=== PATIENT | female | born 1945 | race Caucasian/White ===

== ENCOUNTER → 2016-09-15 | Outpatient (CLI) | payer MEDICARE, OTHER ==
[~2016-09-15] MED LIST: ASPIRIN EC81 MG PO; BIOTIN300 MCG PO; BREO ELLIPTA 11 EACH INH; CALCIUM + D SO1 EACH PO; CATAPRES 0.1MG0.1 MG PO; CENTRUM COMPLE1 EACH PO; DILTIAZEM 24HR180 M1 PO; FLONASE 0.05% N16 GM; FUROSEMIDE40 MG PO; GLUCOPHAGE850 MG PO; LIPITOR TAB 2020 MG PO; LISINOPRIL5 MG PO; METFORMIN HCL1000 MG PO; NITROSTAT0.4 MG SL; OMEPRAZOLE40 MG PO; POTASSIUM CHLO10 MEQ PO; PRADAXA150 MG PO; PROAIR HFA8.5 GM INH; PROMETHAZINE HC25 M1 PO; RANEXA1000 MG PO; RANEXA500 MG PO; ROPINIROLE HCL0.5 MG PO; SINGULAIR10 MG PO; SOTALOL AF80 MG PO; SOTALOL120 MG PO; TESSALON PERLE100 MG PO; TRAMADOL HCL50 MG PO; VITAMIN B12-FO1 EACH PO; VITAMIN D250000 UNIT PO; VITAMIN D3 COM1 EACH PO; WELCHOL625 MG PO; ZETIA 10 MG TAB10 MG PO; ZYRTEC10 M3 PO
== END ==
LOC: HEART 5 14:56
DX: R00.2 Palpitations (principal); I48.91 Unspecified atrial fibrillation; I10 Essential (primary) hypertension

== ENCOUNTER → 2016-09-19 | Outpatient (CLI) | payer MEDICARE, OTHER | LOC: HEART 5 11:03 | DX: J45.991 Cough variant asthma (principal); I25.10 Atherosclerotic heart disease of native coronary artery without angina pectoris; J98.11 Atelectasis | CPT/HCPCS: 71020-FX ==

== ENCOUNTER → 2016-10-27 | Outpatient (CLI) | payer MEDICARE, OTHER | LOC: HEART 5 10-26 11:00 | DX: I25.10 Atherosclerotic heart disease of native coronary artery without angina pectoris (principal); I48.91 Unspecified atrial fibrillation | CPT/HCPCS: 93306 ==

== ENCOUNTER 2016-11-05 11:41 | Emergency (ER) | payer MEDICARE, OTHER ==
[~2016-11-05 11:41] MED LIST changes: -BIOTIN300 MCG PO; -BREO ELLIPTA 11 EACH INH; -CATAPRES 0.1MG0.1 MG PO; -GLUCOPHAGE850 MG PO; -LISINOPRIL5 MG PO; -PROAIR HFA8.5 GM INH; -RANEXA1000 MG PO; -SOTALOL AF80 MG PO; -VITAMIN D250000 UNIT PO
[2016-11-05 12:55] LABS: HEMOGLOBIN 11.6 gm/dl (12.3-15.3); RED BLOOD COUNT 4.15 M/UL (4.00-5.10); WHITE BLOOD COUNT 10.3 K/UL (4.5-11.0)
[2016-11-05 13:14] LABS: BUN/CREATININE RATIO 17 (0-10)
[2016-12-24] MEDS ORDERED: VITAMIN B12-FO1 EACH PO (05:23)
[2016-12-24] MEDS ORDERED: VITAMIN D250000 UNIT PO (05:23)
[2016-12-24] MEDS ORDERED: BIOTIN300 MCG PO (05:23)
[2016-12-24] MEDS ORDERED: BREO ELLIPTA 11 EACH INH (05:24)
[2016-12-24] MEDS ORDERED: GLUCOPHAGE850 MG PO (05:24)
[2016-12-24] MEDS ORDERED: SOTALOL AF80 MG PO (05:25)
[2016-12-24] MEDS ORDERED: CATAPRES 0.1MG0.1 MG PO (05:25)
[2016-12-24] MEDS ORDERED: PROAIR HFA8.5 GM INH (05:25)
[2016-12-24] MEDS ORDERED: RANEXA1000 MG PO (05:25)
[2016-12-24] MEDS ORDERED: LISINOPRIL5 MG PO (14:18)
== END 2016-11-05 14:54 | disposition home or self-care (01) ==
LOC: ER1 11:41
PROVIDERS: Emergency Medicine
DX: R42 Dizziness and giddiness (principal); R53.1 Weakness; R11.2 Nausea with vomiting, unspecified; R51 Headache; I48.91 Unspecified atrial fibrillation; I10 Essential (primary) hypertension; E11.9 Type 2 diabetes mellitus without complications; Z95.1 Presence of aortocoronary bypass graft
CPT/HCPCS: 36415; 70450; 71010; 80053; 82550; 82553; 83874; 84484; 85025; 93005; 99284; Q0162

== ENCOUNTER → 2017-02-14 | Day surgery (SDC) | payer MEDICARE, OTHER ==
[~2017-02-14] VITALS: Ht 149.9 cm; Wt 70.3 kg
[~2017-02-14] MED LIST changes: +BIOTIN300 MCG PO; +BREO ELLIPTA 11 EACH INH; +CATAPRES 0.1MG0.1 MG PO; +GLUCOPHAGE850 MG PO; +LISINOPRIL5 MG PO; +PROAIR HFA8.5 GM INH; +RANEXA1000 MG PO; +SOTALOL AF80 MG PO; +VITAMIN D250000 UNIT PO
== END | disposition home or self-care (01) ==
LOC: OR 07:26
PROVIDERS: Internal Medicine Gastroenterology
PROC: 0DB78ZX Excision of Stomach, Pylorus, Via Natural or Artificial Opening Endoscopic, Diagnostic (ICD-10-PCS; principal; 2017-02-14 11:45)
DX: E11.43 Type 2 diabetes mellitus with diabetic autonomic (poly)neuropathy (principal); K31.84 Gastroparesis; K29.70 Gastritis, unspecified, without bleeding; I10 Essential (primary) hypertension; G47.30 Sleep apnea, unspecified; Z80.0 Family history of malignant neoplasm of digestive organs; Z88.6 Allergy status to analgesic agent; Z79.82 Long term (current) use of aspirin; Z79.84 Long term (current) use of oral hypoglycemic drugs; Z79.899 Other long term (current) drug therapy; Z90.710 Acquired absence of both cervix and uterus
CPT/HCPCS: 82962; J2250; J3010; J7030

== ENCOUNTER → 2021-01-12 | Outpatient (CLI) | payer MEDICARE, OTHER ==
[~2021-01-12] MED LIST changes: +ALPHA LIPOIC A600 MG PO; +COZAAR25 MG PO; +DRAMAMINE LESS25 MG PO; +ELIQUIS5 MG PO; +IRON325 M1 PO; +NORVASC 5 MG TAB5 MG PO; +VITAMIN D32000 UNI1 PO
== END ==
LOC: MAMO 12-29 09:30
DX: Z12.31 Encounter for screening mammogram for malignant neoplasm of breast (principal)
CPT/HCPCS: 77063; 77067; 82962

== ENCOUNTER → 2021-03-01 | Outpatient (CLI) | payer MEDICARE, OTHER | LOC: EXRD 12:49 | DX: M85.88 Other specified disorders of bone density and structure, other site (principal) | CPT/HCPCS: 77080 ==

== ENCOUNTER → 2021-09-21 | Day surgery (SDC) | payer MEDICARE, OTHER ==
[~2021-09-21] MED LIST changes: +ALDACTONE25 MG PO; +ARAVA20 MG PO; +CARVEDILOL6.25 MG PO; +IPRAT-ALBUT 0.5-3 ML INH; +LOSARTAN POTASS25 MG PO; +MAGNESIUM400 MG PO; +METFORMIN HCL750 MG PO; +MULTI-VITAMIN1 EACH PO; +MYSOLINE50 MG PO; +PREDNISONE 10 M10 MG PO; +SERTRALINE HCL25 MG PO; +TIKOSYN125 MCG PO; +TORSEMIDE20 MG PO; +TRELEGY ELLIPT1 EAC1 INH; +VIT B12 PO; +ZETIA10 MG PO
== END | disposition home or self-care (01) ==
LOC: OR 07:40
DX: K29.31 Chronic superficial gastritis with bleeding (principal); K25.4 Chronic or unspecified gastric ulcer with hemorrhage; K21.00 Gastro-esophageal reflux disease with esophagitis, without bleeding; D50.0 Iron deficiency anemia secondary to blood loss (chronic); E78.5 Hyperlipidemia, unspecified; I25.10 Atherosclerotic heart disease of native coronary artery without angina pectoris; K57.30 Diverticulosis of large intestine without perforation or abscess without bleeding; K64.1 Second degree hemorrhoids; K64.4 Residual hemorrhoidal skin tags; K22.89 Other specified disease of esophagus; I12.9 Hypertensive chronic kidney disease with stage 1 through stage 4 chronic kidney disease, or unspecified chronic kidney disease; N18.9 Chronic kidney disease, unspecified; I48.91 Unspecified atrial fibrillation; Z95.1 Presence of aortocoronary bypass graft; Z88.5 Allergy status to narcotic agent; Z79.02 Long term (current) use of antithrombotics/antiplatelets; Z20.822 Contact with and (suspected) exposure to COVID-19
CPT/HCPCS: 82962; J7040; U0002